=== PATIENT | male | born 1955 ===

== ENCOUNTER 2022-02-17 10:57 | Inpatient (IN) | payer BC ==
[~2022-02-17] VITALS: Ht 170.2 cm; Wt 90.0 kg
[2022-02-17 11:36] LABS: BASOPHILS ABSOLUTE AUTO 0.06 K/mm3 (0.00-0.23); BASOPHILS PERCENT AUTO 1 % (0-2); EOSINOPHILS ABSOLUTE AUTO 0.08 K/mm3 (0.00-0.68); EOSINOPHILS PERCENT AUTO 1 % (0-6); Hematocrit 45.6 % (37.0-53.0); IMMATURE GRAN ABSOLUTE AUTO 0.03 K/mm3 (0.00-0.10); IMMATURE GRAN PERCENT AUTO 0 % (0-1); LYMPHOCYTES PERCENT AUTO 19 % (21-46); MONOCYTES ABSOLUTE AUTO 1.14 K/mm3 (0.16-1.47); MONOCYTES PERCENT AUTO 14 % (4-13); Mean Corpuscular HGB 30.2 pg (26.0-34.0); Mean Corpuscular HGB Conc 32.9 g/dL (31.5-36.5); Mean Corpuscular Volume 92 fL (80-100); Mean Platelet Volume 11.1 fL (9.1-12.4); NEUTROPHILS ABSOLUTE AUTO 5.24 K/mm3 (1.96-9.15); NEUTROPHILS PERCENT AUTO 65 % (41-73); Platelet Count 171 K/mm3 (150-400); RDW Coefficient Variation 13.6 % (11.7-14.2); Red Blood Cell Count 4.97 M/mm3 (4.30-5.90); White Blood Cell Count 8.05 K/mm3 (4.00-11.30)
[2022-02-17 11:55] LABS: Alanine Aminotransfer (ALT/SGP 47 U/L (12-78); Albumin, Blood 3.6 g/dL (3.4-5.0); Albumin/Globulin Ratio 0.8 (0.8-1.8); Alk Phos 91 U/L (50-136); Anion Gap 6 mmol/L (6-16); Aspartate Aminotrans (AST/SGOT 49 U/L (12-37); Bilirubin, Total 0.7 mg/dL (0.1-1.0); Blood Urea Nitrogen 15 mg/dL (8-24); Bun/Creatinine Ratio 14.4 (12.0-20.0); CO2, Blood 28 mmol/L (21-32); Calcium, Blood 8.7 mg/dL (8.5-10.1); Chloride, Blood 101 mmol/L (98-108); Creatinine, Blood 1.04 mg/dL (0.60-1.20); Globulin, Blood 4.4 g/dL (2.2-4.0); Glomerular Filtration Rate >60 (60-); Glucose, Blood 99 mg/dL (70-99); Potassium, Blood 4.4 mmol/L (3.5-5.5); Sodium, Blood 135 mmol/L (136-145)
[2022-02-17] MEDS ORDERED: LISI5 PO (15:56)
[2022-02-17] MEDS ORDERED: FURO20 PO (15:57)
[2022-02-17] MEDS ORDERED: PARO20 PO (15:58)
[2022-02-17] MEDS ORDERED: DULO60 PO (15:59)
[2022-02-17] MEDS ORDERED: METO25ER PO (15:59)
[2022-02-17] MEDS ORDERED: Bentyl20 MG PO (16:00)
[2022-02-17 16:21] LABS: Influenza A, PCR NEGATIVE (NEGATIVE); Influenza B, PCR NEGATIVE (NEGATIVE); Resp Syncytial Virus, PCR NEGATIVE (NEGATIVE); SARS-Cov-2 (COVID-19) PCR, MMC NEGATIVE (NEGATIVE)
--- NOTE | 2022-02-17 17:01 | NUR ---
SHIFT SUMMARY/ER ADMIT Pt arrived from the ER and was assisted to the bed. He can walk unassisted and denies any chest pain or SOB. His S.O. is at the bedside. The Pt reports that he does feel some mild SOB when his heart rate "gets really high". His med list was updated as he brought his list from home. 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 He is currently in A-fib in the one teens to 120's and is asymptomatic. The doctor has ordered a stress test and the heart center called the nurses station to report that it would be done tomorrow. A second IV was placed. He is a/o x 4 and very pleasant. He understands the use of the call light and has it and his personal items in reach.
[2022-02-17 17:51] LABS: International Normalized Ratio 1.27; Prothrombin Time Results 13.1 Sec (9.7-11.5)
--- NOTE | 2022-02-18 11:30 | NUR ---
HEPARIN RATE CHANGE: HEPARIN RATE HAS BEEN CHANGED TO 15 U/KG/HR, PUMP RATE 22.8 ML/HR. TITRATION HAS BEEN VERIFIED WITH UTE Saldaña RN.
[2022-02-18 11:48] LABS: CHOL/HDL RATIO 4.8; Cholesterol 91 mg/dL (50-200); HDL Cholesterol 19 mg/dL (>39); LDL/HDL RATIO 3.2; Low Density Lipoprotein Chol 61 mg/dL (0-110); Triglycerides 54 mg/dL (30-160); Very Low Density Lipoprot Chol 10 mg/dL (6-32)
--- NOTE | 2022-02-18 17:24 | NUR ---
SHIFT SUMMARY: PT CONTINUES A&Ox4, ABLE TO MAKE NEEDS KNOWN, COOPERATIVE WITH CARE. PT DENIES SOB OR CHEST PAIN T/OUT SHIFT. PT CONTINUES ROOM AIR W/SATS >93%, AFIB ON MONITOR WITH RATE 100-130, PT DID HAVE ELEVATED HR PEAKING IN 150s FOR A PERIOD OF TIME, BUT IT DID NOT SUSTAIN AND PT CONTINUED TO DENY CP. PT INDEPENDENT IN ROOM, WALKING TO/FROM RESTROOM. ATTENDS CONTINUES IN PLACE D/T URINARY INCONTINENCE R/T PROSTATECTOMY. IMAGING COMPLETED YESTERDAY SHOWED CONSTIPATION, BOWEL CARE HAS BEEN INITIATED, PER REPORT PT W/2 BM DURING NOC SHIFT. FIRST PART OF STRESS TEST COMPLETED TODAY, PLAN IS FOR SECOND PART TO BE COMPLETED BY EARLY AFTERNOON. ECHO COMPLETED AT THE BEDSIDE TODAY. AT THIS TIME, PT RESTING IN ROOM WITH DINNER TRAY. CALL LIGHT WITHIN REACH. WILL CONTINUE TO MONITOR AND TREAT ACCORDINGLY.
[2022-02-19 05:39] LABS: Anion Gap 8 mmol/L (6-16); Blood Urea Nitrogen 21 mg/dL (8-24); Bun/Creatinine Ratio 21.1 (12.0-20.0); CO2, Blood 26 mmol/L (21-32); Calcium, Blood 8.5 mg/dL (8.5-10.1); Chloride, Blood 103 mmol/L (98-108); Glomerular Filtration Rate >60 (60-); Glucose, Blood 92 mg/dL (70-99); Potassium, Blood 4.5 mmol/L (3.5-5.5); Sodium, Blood 137 mmol/L (136-145)
--- NOTE | 2022-02-19 06:28 | NUR ---
AXO X4, NO ACUTE EVENTS OVERNIGHT. PT DENIES CHEST PAIN/PRESSURE. PT HR SUSTAINED IN 125s-130s PO METROPROLOL ADMINISTERED TWO HOURS EARLY, WILL NOTIFIED DAY NURSE.PT PENDING 2nd STRESS TEST TODAY. CALL LIGHT WITHIN REACH, SIDERAIL UP X3.
--- NOTE | 2022-02-19 17:49 | NUR ---
RESTARTED HEPARIN GTT, AFTER CALL TO PRIMARY RN AND TO PHARMACY.
--- NOTE | 2022-02-19 18:55 | NUR ---
SHIFT SUMMARY: NO ACUTE CHANGES TO PT CONDITION T/OUT SHIFT. PT CONTINUES A&Ox4, SATS >92% ON RA, AFIB ON MONITOR W/RATE 90s-120 AT REST AND 110s-130s W/ACTIVITY. PT DENIES SOB, CHEST PAIN. HEPARIN INFUSION CONTINUES PER ORDERS. PT COMPLETED 2ND PORTION OF STRESS TEST TODAY, POTENTIAL DC HOME TOMORROW DEPENDING ON STRESS TEST RESULTS.
[2022-02-20 04:21] LABS: Albumin, Blood 3.1 g/dL (3.4-5.0); Anion Gap 6 mmol/L (6-16); Blood Urea Nitrogen 18 mg/dL (8-24); Bun/Creatinine Ratio 18.1 (12.0-20.0); CO2, Blood 28 mmol/L (21-32); Calcium, Blood 8.4 mg/dL (8.5-10.1); Chloride, Blood 101 mmol/L (98-108); Creatinine, Blood 0.99 mg/dL (0.60-1.20); Glomerular Filtration Rate >60 (60-); Glucose, Blood 101 mg/dL (70-99); Phosphorus, Blood 4.3 mg/dL (2.5-4.9); Potassium, Blood 4.1 mmol/L (3.5-5.5); Sodium, Blood 135 mmol/L (136-145)
--- NOTE | 2022-02-20 05:53 | NUR ---
ELEVATOR ADJUSTER SUMMARY PT IS AXO X4 AND COMMUNICATING APPROPRIATELY. NO NEW CHANGES THIS SHIFT. PT DENIED ANY PAIN OR NAUSEA THIS SHIFT. BP MILDY ELEVATED BUT STABLE. TELE SHOWING AFIB 90-100'S EXCEPT FOR WHEN THE PT IS AMBULATING AND HIS HR RISES INTO THE 130'S, PT DENIES ANY SYMPTOMS DURING THIS CHANGE IN HR. PT AFEBRILE. O2 SATS >92% ON RM AIR. WILL REPORT TO ONCOMING GAIL
[2022-02-20] MEDS ORDERED: ELIQUIS5 M2 PO (09:36)
[2022-02-20] MEDS ORDERED: METO50 PO (09:37)
[2022-02-20] MEDS ORDERED: MIRALAX17 GM PO (09:39)
--- NOTE | 2022-02-20 12:00 | NUR ---
PT D/C TO HOME. IV REMOVED AND PRESSURE DRESSED WITH NO ACTIVE BLEEDING FROM SITE. PT EXPRESSED UNDERSTANDING OF MEDICATION CHANGES AND DENIES FURTHER QUESTIONS OR NEEDS.
== END 2022-02-20 11:55 | disposition home or self-care (01) | DRG 291 ==
LOC: ER 10:57 → PCU 15:19
PROVIDERS: Emergency Medicine; Family Medicine; Pharmacist; ADMIT Internal Medicine
DX: I11.0 Hypertensive heart disease with heart failure (principal); I50.43 Acute on chronic combined systolic (congestive) and diastolic (congestive) heart failure; I24.8 Other forms of acute ischemic heart disease; I48.20 Chronic atrial fibrillation, unspecified; Z20.822 Contact with and (suspected) exposure to COVID-19; K59.00 Constipation, unspecified; F41.8 Other specified anxiety disorders; Z79.899 Other long term (current) drug therapy; Z79.01 Long term (current) use of anticoagulants; Z85.46 Personal history of malignant neoplasm of prostate
CPT/HCPCS: 0241U; 36415; 71045; 74018; 78452; 80053; 80061; 80069; 83690; 83880; 84484; 85025; 85610; 85730; 93005; 93010; 93017; 93306; 96374; 96375; 96376; 99285-25; A9270; A9500; G0378; J0280; J1644; J1940; J2785